=== PATIENT | male | born 1995 | race Caucasian/White ===

== ENCOUNTER 2018-12-19 13:51 | Emergency (ER) | payer BC ==
[~2018-12-19] VITALS: Ht 172.7 cm; Wt 93.0 kg
[~2018-12-19 13:51] MED LIST: ACET1TAB40 PO; PANT40TA3 PO; QUET400T PO
[2018-12-19 13:57] VITALS: BP 152/81; PULSE 72; RESP 18; Ht 172.7 cm; Wt 93.0 kg
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
== END 2018-12-19 14:20 | disposition home or self-care (01) ==
LOC: E/R 13:51
DX: F22 Delusional disorders (principal); Z86.59 Personal history of other mental and behavioral disorders
CPT/HCPCS: 99283